=== PATIENT | female | born 1995 | race Caucasian/White ===

== ENCOUNTER 2020-04-20 19:45 | Emergency (ER) | payer OTHER, SELFPAY ==
[~2020-04-20] VITALS: Ht 170.2 cm; Wt 61.2 kg
[2020-04-20] MEDS ORDERED: ACETAMINOPHEN 500 MG TAB PO ONE (22:00)
[2020-04-20 22:06] VITALS: BP 123/79
== END 2020-04-20 22:07 | disposition home or self-care (01) ==
LOC: M ED 19:45
DX: S01.01XA Laceration without foreign body of scalp, initial encounter (principal); W22.09XA Striking against other stationary object, initial encounter; Y92.098 Other place in other non-institutional residence as the place of occurrence of the external cause; F10.10 Alcohol abuse, uncomplicated; F17.200 Nicotine dependence, unspecified, uncomplicated

== ENCOUNTER 2020-08-25 16:42 | Emergency (ER) | payer OTHER ==
[~2020-08-25] VITALS: Ht 167.6 cm; Wt 62.1 kg
[2020-08-25 16:42] VITALS: BP 143/87
--- OUTSIDE RECORDS SUMMARY | 2020-08-25 16:47 | CCD | Continuity of Care Document ---
Author Author Daniella MICHAELS MD Organization Unknown Address [address] [place] [address], [address] [address] Phone [phone] Problems Description No Information Available Social History Type Date Description Comments Sex Unknown ETOH Use Occasionally consumes alcohol Tobacco Use Start: Unknown Patient is a current smoker, smo kes every day Smoking Status Reviewed: 06/04/20 Patient is a current smoker, smokes every day Allergies, Adverse Reactions, Alerts Description No Known Drug Allergies Medications Active Medications SIG Qnty Indications Ordering Provide r Date Ibuprofen 800mg Tablets 1 by mouth every 8 hours as needed Unknown Immunizations Description No Information Available Vital Signs Date Vital Result Comment 06/04/2020 10:30am Body Temperature 97.7 F Height 67 inches 5'7" Weight 135.00 lb BMI (Body Mass Index) 21.1 kg/m2 Results Description No Information Available Procedures Description No Information Available Medical Devices Description No Information Available Encounters Description No Information Available Assessments Date Code Description Provider 06/04/2020 S62.356A Nondisplaced fractur e of shaft of fifth metacarpal bone, right hand, initial encounter for closed fracture Vivi Michaels MD Plan of Treatment Future Appointment(s):* 06/10/2020 2:15 pm - Lucy Ladd PA-C at [facility] 06/04/2020 - Vivi Michaels MD* S62.356A Nondisplaced fracture of shaft of fifth metacarpal bone, right hand, initial encounter for closed fracture* Follow up:* f/u with PA in 1 week with xrays Functional Status Description No Information Available Mental Status Description No Information Available Referrals Description No Information Available
--- OUTSIDE RECORDS SUMMARY | 2020-08-25 16:47 | CCD | Continuity of Care Document ---
Author Author Daniella MICHAELS MD Organization Unknown Address [address] [place] [address], [address] [place] [id number] Phone [phone] Problems Description No Information Available Social History [...] kg/m2 Results Description No Information Available Procedures Date Code Description Status 06/10/2020 67893 X-Ray Hand Three Views Completed 06/04/2020 52781 FX Metacarpal W/O Manipulation C ompleted Medical Devices Description No Information Available Encounters Type Date Location Provider Dx Diagnosis Office Visit 06/10/2020 2:15p Kimo Ladd PA-C S62.356 D Nondisp fx of shaft of 5th MC bone, r hand, 7thD Office Visit 06/04/2020 10:00a Kimo Michaels MD S6 2.326A Disp fx of shaft of fifth metacarpal bone, right hand, init Assessments Date Code Description Provider 06/10/2020 S62.356D Nondisplaced fractur e of shaft of fifth metacarpal bone, right hand, subsequent encounter for fracture with routine healing Lucy Ladd PA-C 06/04/2020 S62.326A Displaced fracture o f shaft of fifth metacarpal bone, right hand, initial encounter for closed fracture Vivi Michaels MD Plan of Treatment Future Appointment(s):* 07/03/2020 2:15 pm - Lucy Ladd PA-C at [place] 06/10/2020 - Lucy Ladd PA-C* S62.356D Nondisplaced fracture of shaft of fifth metacarpal bone, right hand, subsequent encounter for fracture with routine healing* Follow up:* in 2-3 weeks with [facility] for right wrist recheck with [facility]. Functional Status Description No Information Available Mental Status Description No Information Available Referrals Description No Information Available
--- OUTSIDE RECORDS SUMMARY | 2020-08-25 16:47 | CCD ---
Continuity of Care Document (CCD) Created on: 06/25/2020 Daniella De Souza External Reference #: [id number] : 1995 Sex: Female Author Author Daniella LADD PA-C Organization Unknown Address [address] [place] [address] Phone [phone] Problems Description No Information Available Social History [...] Available Procedures Date Code Description Status 06/10/2020 27630 X-Ray Hand Three Views Completed 06/04/2020 08786 FX Metacarpal W/O Manipulation C ompleted Medical Devices Description No Information Available Encounters Type Date Location Provider Dx Diagnosis Office Visit 06/10/2020 2:15p [facility] PA-[facility] S62.356 D Nondisp fx of shaft of 5th MC bone, r hand, 7thD Office Visit 06/04/2020 10:00a Kimo Ward MD S6 2.326A Disp fx of shaft of fifth metacarpal bone, right hand, init Assessments Date Code Description Provider 06/10/2020 S62.356D Nondisplaced fractur e of shaft of fifth metacarpal bone, right hand, subsequent encounter for fracture with routine healing Lucy Ladd PA-C 06/04/2020 S62.326A Displaced fracture o f shaft of fifth metacarpal bone, right hand, initial encounter for closed fracture Vivi Ward MD Plan of Treatment Future Appointment(s):* 07/03/2020 2:15 pm - Lucy Ladd PA-C at [facility] 06/10/2020 - Lucy Ladd PA-C* S62.356D Nondisplaced [...]
--- OUTSIDE RECORDS SUMMARY | 2020-08-25 16:47 | CCD ---
Author Author [facility] Organization [facility] Address Unknown Phone Unavailable Care Team Providers Care [employer] Worker Name Role Phone [facility]ly [facility], 1928–1983 [facility], PA-C Unavailable Unavailabl e Fish, [facility], PA-C Unavailable Unavailabl e Fish, [facility], PA-C Unavailable Unavailabl e Fish, [facility], PA-C Unavailable Unavailabl e Fish, [facility], PA-C Unavailable Unavailabl e Fish, [facility], PA-C Unavailable Unavailabl e Fish, [facility], PA-C Unavailable Unavailabl e Fish, [facility], PA-C Unavailable Unavailabl e Fish, [facility], PA-C Unavailable Unavailabl e Fish, [facility], PA-C Unavailable Unavailabl e Fish, [facility], PA-C Unavailable Unavailabl e Fish, [facility], PA-C Unavailable Unavailabl e Fish, [facility], PA-C Unavailable Unavailabl e Fish, [facility], PA-C Unavailable Unavailabl e Fish, [facility], PA-C Unavailable Unavailabl e Fish, [facility], PA-C Unavailable Unavailabl e Fish, [facility], PA-C Unavailable Unavailabl e Fish, [facility], PA-C Unavailable Unavailabl e Fish, [facility], PA-C Unavailable Unavailabl e Fish, [facility], PA-C Unavailable Unavailabl e Fish, [facility], PA-C Unavailable Unavailabl e Fish, [facility], PA-C Unavailable Unavailabl e Fish, [facility], PA-C Unavailable Unavailabl e Fish, [facility], PA-C Unavailable Unavailabl e Fish, [facility], PA-C Unavailable Unavailabl e Fish, [facility], PA-C Unavailable Unavailabl e Fish, [facility], PA-C Unavailable Unavailabl e Fish, [facility], PA-C Unavailable Unavailabl e Fish, [facility], PA-C Unavailable Unavailabl e Fish, [facility], PA-C Unavailable Unavailabl e Fish, [facility], PA-C Unavailable Unavailabl e Fish, [facility], PA-C Unavailable Unavailabl e Fish, [facility], PA-C Unavailable Unavailabl e MARAVEGIAS, Eric BROWN MD Unavailable Unavailable MARAVEGIAS, Eric BROWN MD Unavailable Unavailable MARAVEGIAS, Eric BROWN MD Unavailable Unavailable MARAVEGIAS, Eric BROWN MD Unavailable Unavailable MARAVEGIAS, Eric BROWN MD Unavailable Unavailable MARAVEGIAS, Eric BROWN MD Unavailable Unavailable MARAVEGIAS, Eric BROWN MD Unavailable Unavailable MARAVEGIAS, Eric BROWN MD Unavailable Unavailable MARAVEGIAS, Eric BROWN MD Unavailable Unavailable MARAVEGIAS, Eric BROWN MD Unavailable Unavailable MARAVEGIAS, Eric BROWN MD Unavailable Unavailable MARAVEGIAS, Eric BROWN MD Unavailable Unavailable MARAVEGIAS, Eric BROWN MD Unavailable Unavailable MARAVEGIAS, Eric BROWN MD Unavailable Unavailable TURRIN, KELLY Unavailable Unavailable TURRIN, KELLY Unavailable Unavailable TURRIN, KELLY Unavailable Unavailable TURRIN, KELLY Unavailable Unavailable Ruben Ward MD Unavailable Unavailable Ruben Ward MD Unavailable Unavailable Ruben Ward MD Unavailable Unavailable Ruben Ward MD Unavailable Unavailable Ruben Ward MD Unavailable Unavailable Ruben Ward MD Unavailable Unavailable Ruben Ward MD Unavailable Unavailable Vaneenenaam, Ruben Virgen MD Unavailable Unavailable Vaneenenaam, Ruben Virgen MD Unavailable Unavailable Vaneenenaam, Ruben Virgen MD Unavailable Unavailable Vaneenenaam, Ruben Virgen MD Unavailable Unavailable Vaneenenaam, Ruben Virgen MD Unavailable Unavailable Vaneenenaam, Ruben Virgen MD Unavailable Unavailable Vaneenenaam, Ruben Virgen MD Unavailable Unavailable Vaneenenaam, Ruben Virgen MD Unavailable Unavailable Vaneenenaam, Ruben Virgen MD Unavailable Unavailable Vaneenenaam, Ruben Virgen MD Unavailable Unavailable Vaneenenaam, Ruben Virgen MD Unavailable Unavailable Vaneenenaam, Ruben Virgen MD Unavailable Unavailable Vaneenenaam, Ruben Virgen MD Unavailable Unavailable Vaneenenaam, Ruben Virgen MD Unavailable Unavailable Vaneenenaam, Ruben Virgen MD Unavailable Unavailable Vaneenenaam, Ruben Virgen MD Unavailable Unavailable Vaneenenaam, Ruben Virgen MD Unavailable Unavailable Vaneenenaam, Ruben Virgen MD Unavailable Unavailable Vaneenenaam, Ruben Virgen MD Unavailable Unavailable Vaneenenaam, Ruben Virgen MD Unavailable Unavailable Vaneenenaam, Ruben Virgen MD Unavailable Unavailable Vaneenenaam, Ruben Virgen MD Unavailable Unavailable Vaneenenaam, Ruben Virgen MD Unavailable Unavailable Vaneenenaam, Ruben Virgen MD Unavailable Unavailable Vaneenenaam, Ruben Virgen MD Unavailable Unavailable Vaneenenaam, Ruben Virgen MD Unavailable Unavailable Vaneenenaam, Ruben Virgen MD Unavailable Unavailable Vaneenenaam, Ruben Virgen MD Unavailable Unavailable Vaneenenaam, Ruben Virgen MD Unavailable Unavailable Vaneenenaam, Ruben Virgen MD Unavailable Unavailable Vaneenenaam, Ruben Virgen MD Unavailable Unavailable Vaneenenaam, Ruben Virgen MD Unavailable Unavailable Vaneenenaam, Ruben Virgen MD Unavailable Unavailable Vaneenenaam, Ruben Virgen MD Unavailable Unavailable Vaneenenaam, Ruben Virgen MD Unavailable Unavailable Nasrin VALDES MD Unavailable Unavailable Nasrin VALDES MD Unavailable Unavailable Nasrin VALDES MD Unavailable Unavailable Nasrin VALDES MD Unavailable Unavailable Nasrin VALDES MD Unavailable Unavailable Nasrin VALDES MD Unavailable Unavailable Nasrin VALDES MD Unavailable Unavailable Nasrin VALDES MD Unavailable Unavailable Nasrin VALDES MD Unavailable Unavailable NOT, SPECIFIED Unavailable Unavailable Re-disclosure Warning The records that you are about to access may contain information from federally-assisted alcohol or drug abuse programs. If such information is present, then the following federally mandated warning applies: This information has been disclosed to you from records protected by federal confidentiality rules (42 CFR part 2). The federal rules prohibit you from making any further disclosure of this information unless further disclosure is expressly permitted by the written consent of the person to whom it pertains or as otherwise permitted by 42 CFR part 2. A general authorization for the release of medical or other information is NOT sufficient for this purpose. The Federal rules restrict any use of the information to criminally investigate or prosecute any alcohol or drug abuse patient.The records that you are about to access may contain highly sensitive health information, the redisclosure of which is protected by Article 27-F of the [facility] Public Health law. If you continue you may have access to information: Regarding HIV / AIDS; Provided by facilities licensed or operated by the [facility] Office of Mental Health; or Provided by the [facility] Office for People With Developmental Disabilities. If such information is present, then the following [facility] mandated warning applies: This information has been disclosed to you from confidential records which are protected by state law. State law prohibits you from making any further disclosure of this information without the specific written consent of the person to whom it pertains, or as otherwise permitted by law. Any unauthorized further disclosure in violation of state law may result in a fine or half-way sentence or both. A general authorization for the release of medical or other information is NOT sufficient authorization for further disc losure. Allergies and Adverse Reactions Type Description Substance Reaction Status Data Source(s ) Drug allergy Drug allergy No Known Allergies [facility] Encounters Encounter Providers Location Date Indications Data Source(s ) Emergency Attender: KELLY CERVANTESConsultant: SPECIFIED N OT 08/19/2020 12:06:00 PM EST - 08/19/2020 01:05:00 PM [facility] Patient discharged. Office Visit Attender: Lucy BELTRÁN PA-C Physical Therapy 06/10/2020 01:15:00 PM EST [facility] ([facility]) OFFICE OUTPATIENT NEW 30 MINUTES Attender: Ruben Rodriguez am, MD Physical Therapy 06/04/2020 09:00:00 AM EST [facility] ([facility]) Emergency Attender: GONZALO VALDES MDConsultant: SPECIFIED NOT 06/02/2020 06:14:00 PM EST - 06/02/2020 07:09:00 PM [facility] Patient discharged. Emergency Attender: STEPHANIE LANDRY MD ED-ED 1 06:41:00 PM EDT - 04/30/2020 07:10:00 PM EDT NEEDS YOANDY TAKEN OUT [facility] NEEDS YOANDY TAKEN OUT Patient discharged. Insurance Providers Payer name Policy type / Coverage type Policy ID Covered libertarian ID Covered libertarian's relationship to powell Policy Powell Plan Information [facility] COMMUNITY PLAN [facility] [id number] SP [id number] [facility] COMMUNITY PLAN XIX . 18 . [facility] COMMUNITY PLAN XIX [id number] 18 [id number] [facility] [id number] S [id number] SELF PAY ONLY STATE FARM INS NO FAULT 00 MO2 [address] [facility] [address] [id number] S [id number] ANSI-Medicaid [id number] O UNAVAILABLE UNAVAILA BLE [facility]) O [id number] S [id number] [facility] COMMUNITY PLAN [facility] [id number] SP [id number] Lifetime Benefit Solution Commercial Family Depend ent MEDICAID [id number] SP [id number] [facility] [id number] SP [id number] BLUE [employer]OSS [place] PLAN [id number] SP [id number] [facility] [id number] SP [id number] [facility] MEDICAL CLAIMS [id number] MEDICAID MANAGED CARE -CLINIC [id number] Problems, Conditions, and Diagnoses Code Display Name Description Problem Type Effective Dates Data Source(s) Y929 [address] or not applicable Unspecified place or not applicable Diagnosis 08/19/2020 12:06:00 PM [facility] [id number] Fall on same level from slip ping, tripping and stumbling without subsequent striking against object, initial encounter Fall on same level from slipping, tripping and stumbling without subsequent striking against object, initial encounter Diagnosis 08/19/2020 12:06:00 PM [facility] [id number] Personal history of other (healed) physi bita injury and trauma Personal history of other (healed) physical injury and trauma Diagnosis 0 08/19/2020 12:06:00 PM [facility] [id number] Nicotine dependence, cigarettes, uncompl icated Nicotine dependence, cigarettes, uncomplicated Diagnosis 08/19/2020 12:06:00 PM [facility] [id number] Sprain of radiocarpal joint of right wri st, initial encounter Sprain of radiocarpal joint of right wrist, initial encounter Diagnosis 12:06:00 PM [facility] [id number] Pain in right wrist Pain in right wrist Diagnosis 0 08/19/2020 12:06:00 PM [facility] [id number] Restaurant or cafe as the place of occur rence of the external cause Restaurant or cafe as the place of occurrence of the external cause Diagnosis 06/02/2020 06:14:00 PM [facility] [id number] Striking against or struck by other obje cts, initial encounter Striking against or struck by other objects, initial encounter Diagnosis 06/02/2020 06:14:00 PM [facility] [id number] Displaced fracture of shaft of fifth metacarpal bone, right hand, initial encounter for closed fracture Displaced fracture of shaft of fifth metacarpal bone, right hand, initial encounter for closed fracture Diagnosis 06/02/2020 06:14:00 PM [facility] [id number] Unspecified injury of right wrist, hand and finger(s), initial encounter Unspecified injury of right wrist, hand and finger(s), initial encounter Diagnosis 06/02/2020 06:14:00 PM [facility] Surgeries/Procedures Procedure Description Date Indications Data Source(s) RADEX HAND MINIMUM 3 VIEWS 06/10/2020 12:00:00 AM EST [facility] ([facility]) CLTX METACARPAL FX W/O MANIPULATION EACH BONE 06/04/20 12:00:00 AM EST [facility] ([facility]) Results ID Date Data Source [id number] 08/20/2020 09:31:00 AM [facility] [address] [place] [address] PHONE: [phone] FAX: [phone] Name .................. : RAJWINDER MANJARREZ Acct Number.................. : [id number] ROOM. ................. : TR-03 MR Number ................... : [id number] Stay type ............. : E/R Discharge Date......... ... : 08/19/20 Admit Date ... ...... : 08/19/20 Admit Phys .................... : HELEN LOPEZ Date of ....... : 1995 Family Phys ................... : Phone .................. : [phone] Age ................................ : 24 Film# .................. .:[id number] Sex ................................. : F Unsigned transcriptions are preliminary reports and do not represent a medical or legal [place] [id number] COMPLETE:08/19/20 12:21 2929 Reason(s): Trauma/Injury RIGHT WRIST SERIES: COMPARISON: 06/02/20 FINDINGS: There is a healing fracture at the proximal shaft of the fifth metacarpal. This was seen in the acute stage on the prior study. No new fracture or dislocation is identified. An accessory ossicle is stable adjacent to the ulnar styloid. The soft tissues appear unremarkable. There is anatomical alignment. IMPRESSION: He aling fracture at proximal shaft fifth metacarpal. No new acute fracture. Electronically Reviewed and Signed By Miles Abraham MD , 08/20/20 09:31, TDS Transcribe Initials: SEPIDEH , Transcribe Date: 08/19/20 22:25, Dictation Date: Copy for: [employer] via fax Copy for: EMERGENCY DEPT via modem Copy for: 710 MED REC DISCHARGED Page 1 of 1 Name Value Range Interpretation Code Description Data Ambreen rce(s) Supporting Document(s) ID Date Data Source [id number] 08/19/2020 12:06:00 PM EST [facility] 1 OrderSheet [facility] Emergency Department [address] [place] [address] Phone #: [phone]- [phone] 08/19/2020 12:03 Patient: LOKI PURDY Sex: F : 1995 Age: 24yWEIGHT:58.0 kg (S) HEIGHT:66 inches (S) BMI:20.6ALLERGIES: NoneCHIEF COMPLAINT: Rt, wristDIAGNOSIS: Sprain of jointLAB ORDERSOrder Description Priority Entered Acknowledged InitialedDIAGNOSTIC STUDY ORDERSOrder Description Priority Entered Acknowledged InitialedWrist Complete STAT 12:21 08/19/2020 Ack'd: 12:23 12:27 Angella Petty cesspool cleanerYan(Oxygen?(No)) PA; RAjNAj Tech1 Reason for Study: Trauma/InjuryMEDICATION/IV/DRI P/FLUID ORDERSOrder Description Priority Entered Acknowledged InitialedTylenol PO 650 mg 12:21 08/19/2020 Ack'd: 12:23 Angella Childers R.N. Cancelled: Patient Refusal 12:49 ABAD Childers R.N.GENERAL ORDERSOrder Description Priority Entered Acknowledged Initialed[Electronically signed by Angella Childers R.N. (13:07 08/19/2020)][Electronically signed by Luis Antonio Montesinos (21:42 08/19/2020)][Electronically locked by Angella Childers R.N. (13:08/19/2020)] Name Value Range Interpretation Code Description Data [facility] Supporting Document(s) ID Date Data Source [id number] 08/19/2020 12:06:00 PM [facility] 1 Medication Reconciliation Report [facility] Emergency Department [address] [place] [address] Phone #: ext- [phone] 08/19/2020 12:03 Patient: LOKI PURDY Sex: F : 1995 Age: 24yWeight: 58.0 kgHeight/Length: 66 in.BMI: 20.6ALLERGIES: NoneThe patient's Home Medications are listed below:NONE.The source(s) of the original Home Medication information:Not obtained.The following Medications were given to the patient in the Emergency Department:None.The following Medications were prescribed to the patient:None. Name Value Range Interpretation Code Description Data Ambreen rce(s) Supporting Document(s) ID Date Data Source [id number] 08/19/2020 12:06:00 PM [facility] 1 Medication Administration Record [facility] Emergency Department [address] [place] [address] Phone #: ext- [phone] 08/19/2020 12:03 Patient: LOKI PURDY Sex: F : 1995 Age: 24yWeight: 58.0 kgHeight/Length: 66 inBMI: 20.6ALLERGIES: NoneDate/Time Medication Administered Medication Ordered Name Value Range Interpretation Code Description Data Ambreen rce(s) Supporting Document(s) ID Date Data Source [id number] 08/19/2020 12:06:00 PM EST [facility] 1 General Instructions [facility] Emergency Department [address] [place] [address] Phone #: ext- [phone] 08/19/2020 12:03 Patient: LOKI PURDY Sex: F : 1995 Age: 24ySprain of the right radiocarpal joint.INSTRUCTIONSWear cock-up splint for two weeks until better.Warnings: GENERAL WARNINGS: Return or contact your physician immediately if your conditionworsens or changes unexpectedly, if not improving as expected, or if other problems arise. Specificallyreturn if pain worsens.Your Current Medications: .No home medication.Follow-up:Follow up with your doctor as scheduled. Reason for referral: evaluation and treatment. Summary of careprovided to patient.Understanding of the discharge instructions verbalized by patient. ADDITIONAL INFORMATIONWrist SprainA sprain is an injury to the ligaments or capsule that holds a joint together. There are no brokenbones. Most sprains take about 3 to 6 weeks to heal. If it a severe sprain where the ligament iscompletely torn, it can take months to recover.Most wrist sprains are treated with a splint, wrist brace, or elastic wrap for support. Severe sprainsmay require surgery.Home care Keep your arm elevated to reduce pain and swelling. This is very important during the first 48 hours. Apply an ice pack over the injured area for 15 to 20 minutes every 3 to 6 hours. You should do this for the first 24 to 48 hours. You can make an ice pack by filling a plastic bag that seals 2 General Instructions [facility] Emergency Department [address] [place], [place] [id number] Phone #: ext- [phone] 08/19/2020 12:03 Patient: LOKI PURDY Sex: F : 1995 Age: 24y at the top with ice cubes and then wrapping it with a thin towel. Continue to use ice packs for relief of pain and swelling as needed. As the ice melts, be careful to avoid getting your wrap, splint, or cast wet. After 48 hours, apply heat (warm shower or warm bath) for 15 to 20 minutes several times a day, or alternate ice and heat. You may use [id number] pain medicine to control pain, unless another pain medicine was prescribed. If you have chronic liver or kidney disease or ever had a stomach ulcer or gastrointestinal bleeding, talk with your doctor before using these medicines. If you were given a splint or brace, wear it for the time advised by your doctor.Follow-up careFollow up with your healthcare provider, or as advised. Any X-rays you had today don't show anybroken bones, breaks, or fractures. Sometimes fractures don't show up on the first X-ray. Bruises andsprains can sometimes hurt as much as a fracture. These injuries can take time to heal completely. Ifyour symptoms don't improve or they get worse, talk with your doctor. You may need a repeat X-ray.If X-rays were taken, you will be told of any new findings that may affect your care. When to seek medical advice Call your healthcare provider right away if any of these occur: Pain or swelling increases Fingers or hand becomes cold, blue, numb, or tingly [employer]. [address] [place] [id number]. All rights reserved. This information is not intended as asubstitute for professional medical care. Always follow your healthcare professional's instructions.Wrist Splint: VelcroA splint is designed to prevent movement of the bones, muscles and tendons. Velcro wrist splints areused because of their comfort and convenience for wrist and hand injuries. In certain conditions, thesplint can be removed when bathing or changing clothes. The cond ition you are being treated for willdetermine how long you should wear the splint and if it is safe to remove your splint before your nextvisit. If you are unsure, ask your nurse or doctor. When to seek medical advice Call your healthcare provider right away if any of these occur: Increased pain or swelling under the splint or in the hand or fingers Fingers or hand becomes cold, blue, numb or tingly 3 General Instructions [facility] Emergency Department [address] [place] [address] Phone #: ext- [phone] 08/19/2020 12:03 Patient: LOKI PURDY Sex: F : 1995 Age: 24y [id number] [employer]. [address] [place] [address]. All rights reserved. This information is not intended as asubstitute for professional medical care. Always follow your healthcare professional's instructions. You have been given the following additional information: Wrist Sprain Wrist Splint, Velcro(Electronically signed by JUAN LUIS Yee 08/19/2020 21:42) Name Value Range Interpretation Code Description Data Ambreen rce(s) Supporting Document(s) ID Date Data Source [id number] 08/19/2020 12:06:00 PM EST [facility] 1 Clinical Report - Nurses [facility] Emergency Department [address] [place] [address] Phone #: ext- [phone] 08/19/2020 12:03 Patient: LOKI PURDY Sex: F : 1995 Age: 24yTRIAGEArrived by private vehicle. Historian: patient. Accompanied by friend. ( broke her right hand 1 or 2months ago, had a cast then 2 days ago slipped and landed on right hand now swollen and bruised).Acuity: LEVEL 4.Chief Complaint: INJURY TO RIGHT HAND.Occurred at work. Occurred 12:05 08/17/2020. Fell:Pre-hospital notification of patient arrival was not received.Treatment SHANK INSPECTOR:None. --12:10 08/19/20 Nakia Noble R.N.12:04 08/19/20. BP: 112/68. MAP: 82. HR: 93. RR: 18. O2 saturation: 96%. Temp: 98.4 F. Pain level now:10/02. --12:10 08/19/20 Nakia Noble R.N.( pt is anxious to be here). --12:11 08/19/20 Nakia Noble R.N.Weight: 58 kg stated. Height/Length: 66 inches Per Patient. BMI: 20.6. --12:04 08/19/20 Nakia Noble R.N.MedicationsNone. --12:06 08/19/20 Nakia Noble R.N.AllergiesNone. --12:06 08/19/20 Nakia Noble R.N.HistoryPAST MEDICAL HX: Tetanus status: unknown. Immunizations: status is unknown. Last normalmenstrual period- 1 weeks.SOCIAL HX: Light tobacco smoker- less than 1/2 a pack per day. Heavy drug use: marijuana. Thepatient was offered HIV testing but declined and hepatitis C testing but declined. The patient has nottraveled outside the [place]Infectious disease exposure: No infectious disease exposure. Patient is not a known carrier of tuberculosis,hepatitis, HIV, MRSA or VRE. Patient is not a known carrier of CRE.SELF HARM ASSESSMENT: Self harm assessment was performed. The patient answered "no" to thequestion(s) "Have you recently felt down, depressed, or hopeless?", "Do you have thoughts of harming orkilling yourself?", "Do you have a plan for harming or killing yourself?", "Have you recently had thoughtsabout harming or killing others?", "Do you have any dangerous items in your possession?", "Have you 2 Clinical Report - Nurses [facility] Emergency Department [address] [place] [address] Phone #: ext- [phone] 08/19/2020 12:03 Patient: LOKI PURDY Sex: F : 1995 Age: 24y noticed less interest or pleasure in doing things?", "Are you here because you tried to hurt yourself?" and "Have you ever tried to hurt yourself before today?". ABUSE ASSESSMENT: Abuse assessment. Abuse denied. No suspicion of abuse. No report of abuse. NUTRITIONAL RISK ASSESSMENT: The nutritional risk assessment revealed no deficiencies. FUNCTIONAL ASSESSMENT: Functional assessment: no impairments noted. LEARNING NEEDS ASSESSMENT: The learning needs assessment revealed no barriers. FALL RISK ASSESSMENT: Fall risk assessment completed. No risk factors identified. SKIN INTEGRITY ASSESSMENT: Skin integrity risk assessment completed. No skin integrity risk identified. --12:10 08/19/20 Nakia Noble R.N. Interventions Identification band on patient. To treatment room. --12:10 08/19/20 Nakia Noble R.N.PHYSICAL ASSESSMENTAmbulatory to room.GENERAL / NEURO / PSYCH: Oriented X 4. Alert. Appears in no acute distress. She has numbnessof the right hand.EXTREMITIES: Limited ROM present. Capillary refill is less than 2 seconds in the extremities. Extremitypulses are within normal limits. Right wrist. Right hand: ecchymosis. ( n/v feels different on posteriorhand near pinky finger).SKIN: Skin intact. Skin is warm and dry. --12:19 08/19/20 Angella Childers R.N.NURSING PROGRESS NOTESPatient gowned. Reassurance given. Two patient identifiers checked. Call light placed in reach. Siderails up x 2. Bed placed in lowest position. Brakes of bed on. Patient ready for evaluation. --12: Nakia Noble R.N. Patient walked to radiology with offshore wind turbine technician. --12:27 08/19/20 [place] cesspool cleaner, Yan, Tech1.DISPOSITION / DISCHARGE late entry - 13:08/19/20. Departure time: late entry - 13:08/19/2020. Condition at departure: improved. No learning barriers present. Discharge instructions provided and reviewed with the patient. Reviewed referral to a primary care physician for followup. Patient verbalized understanding. Written instructions provided in [place]. The patient was discharged by the physician assistant professor surgical technology. She was discharged home and unaccompanied at time of discharge. She left ambulatory and via private vehicle. Patient driving. --13:07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 ID Date Data Source UNK Name Value Range Interpretation Code Description Data Source(s) Body mass index (BMI) [Ratio] 21.1 kg/m2 21.1 k g/m2 [facility] ([facility] ) Body weight 135.00 [lb_av] 135.00 [lb_av] MEDEN T ([facility] ) Body height 67 [in_i] 67 [in_i] [facility] ([facility] ) 5'7" Body temperature 97.7 [degF] 97.7 [degF] [facility] ([facility] ) ID Date Data Source [id number] 04/30/2020 07:20:00 PM EDT [facility] spital Name Value Range Interpretation Code Description Data Source(s) Weight Measurement Method 8 8 [facility] Weight 2160 2160 [facility] pital Temperature Source 7 7 [facility] Temperature 97.4 97.4 [facility] Respiratory Effort 1 1 [facility] Respiratory Rate 18 18 [facility] Pulse Assessment Method 4 4 G [facility] Pulse Rate 87 87 [facility] Height 67 67 [facility] 112/87 112/87 [facility] Weight Measurement Method 8 8 [facility] Weight 2160 2160 [facility] pital Temperature Source 7 7 [facility] Temperature 97.4 97.4 [facility] Respiratory Effort 1 1 [facility] Respiratory Rate 18 18 [facility] Pulse Assessment Method 4 4 G [facility] Pulse Rate 87 87 [facility] Height 67 67 [facility] Blood Pressure 112/87 112/87 [facility]
--- OUTSIDE RECORDS SUMMARY | 2020-08-25 16:47 | CCD | Continuity of Care Document ---
Author Author Daniella LADD PA-C Organization Unknown Address [address] [place] [id number] Phone [phone] Problems Description No Information Available Social History [...] Available Procedures Date Code Description Status 06/10/2020 84418 X-Ray Hand Three Views Completed 06/04/2020 64909 FX Metacarpal W/O Manipulation C ompleted Medical Devices Description No Information Available Encounters Type Date Location Provider Dx Diagnosis Office Visit 06/04/2020 10[place] S6 2.356A Nondisp fx of shaft of fifth MC bone, right hand, init Assessments Date Code Description Provider 06/10/2020 S62.356D Nondisplaced fractur e of shaft of fifth metacarpal bone, right hand, subsequent encounter for fracture with routine healing Lucy Ladd PA-C 06/04/2020 S62.356A Nondisplaced fractur e of shaft of fifth metacarpal bone, right hand, initial encounter for closed fracture Vivi Ward MD Plan of Treatment 06/10/2020 - Lucy Ladd PA-C* S62.356D Nondisplaced fracture of shaft of fifth metacarpal bone, right hand, subsequent encounter for fracture with routine healing* Follow up:* in 2-3 weeks with [facility] for rihgt wrist recheck with [facility]. Functional Status Description No Information Available Mental Status Description No Information Available Referrals Description No Information Available
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
== END 2020-08-25 17:49 | disposition home or self-care (01) ==
LOC: M ED 16:42
DX: F32.9 Major depressive disorder, single episode, unspecified (principal); S50.912A Unspecified superficial injury of left forearm, initial encounter; Z91.5 Personal history of self-harm; F17.200 Nicotine dependence, unspecified, uncomplicated; F12.10 Cannabis abuse, uncomplicated; X58.XXXA Exposure to other specified factors, initial encounter; Y92.9 Unspecified place or not applicable; Y93.9 Activity, unspecified; Y99.9 Unspecified external cause status

== ENCOUNTER 2020-10-12 19:24 | Emergency (ER) | payer OTHER ==
[~2020-10-12] VITALS: Ht 167.6 cm; Wt 61.0 kg
[2020-10-12 19:24] VITALS: BP 138/63
[2020-10-12] MEDS ORDERED: LIDOCAINE 2% MDV 20ML VIAL SC ONE (20:05)
[2020-10-12] MEDS ORDERED: DERMABOND TOPICAL SKIN ADHESIVE TOP ONE (20:15)
== END 2020-10-12 20:53 | disposition home or self-care (01) ==
LOC: M ED 19:24
DX: S61.215A Laceration without foreign body of left ring finger without damage to nail, initial encounter (principal); W26.8XXA Contact with other sharp object(s), not elsewhere classified, initial encounter; Y99.0 Civilian activity done for income or pay; Y92.9 Unspecified place or not applicable; Y93.9 Activity, unspecified; F17.200 Nicotine dependence, unspecified, uncomplicated

== ENCOUNTER 2021-03-26 00:58 | Inpatient (IN) | payer MEDICAID, OTHER ==
[~2021-03-26] VITALS: Ht 170.2 cm; Wt 56.7 kg
[2021-03-26 01:59] LABS: HEMATOCRIT 39.8 % (36.0-47.0); MEAN CORPUSCULAR HEMOGLOBIN 32.9 pg (27.0-33.0); MEAN CORPUSCULAR HGB CONC 35.2 g/dl (32.0-36.5); MEAN CORPUSCULAR VOLUME 93.4 fl (80.0-96.0); PLATELET COUNT, AUTOMATED 290 10^3/uL (150-450); RED BLOOD COUNT 4.26 10^6/uL (4.00-5.40); WHITE BLOOD COUNT 7.1 10^3/uL (4.0-10.0)
[2021-03-26 02:34] LABS: HCG, SERUM QUALITATIVE NEGATIVE (NEGATIVE)
[2021-03-26 02:58] LABS: ACETAMINOPHEN LEVEL < 2.0 UG/ML (10.0-30.0); ALBUMIN 3.8 GM/DL (3.2-5.2); ALT/SGPT 21 U/L (12-78); AMPHETAMINES LEVEL URINE POSITIVE (NEGATIVE); BARBITURATES URINE NEGATIVE (NEGATIVE); BENZODIAZEPINES URINE NEGATIVE (NEGATIVE); BILIRUBIN,DIRECT 0.2 MG/DL (0.0-0.2); BILIRUBIN,TOTAL 0.7 MG/DL (0.2-1.0); BLOOD UREA NITROGEN 7 MG/DL (7-18); CALCIUM LEVEL 9.1 MG/DL (8.5-10.1); CANNABINOIDS URINE POSITIVE (NEGATIVE); CARBON DIOXIDE LEVEL 24 MEQ/L (21-32); CHLORIDE LEVEL 111 MEQ/L (98-107); COCAINE METABOLITE URINE POSITIVE (NEGATIVE); CREATININE FOR GFR 0.78 MG/DL (0.55-1.30); ETHYL ALCOHOL (ETHANOL) < 0.003 % (0.000-0.010); GLOMERULAR FILTRATION RATE > 60.0 (>60); GLUCOSE, FASTING 87 MG/DL (70-100); METHADONE URINE NEGATIVE (NEGATIVE); OPIATES URINE NEGATIVE (NEGATIVE); PHENCYCLIDINE URINE NEGATIVE (NEGATIVE); POTASSIUM SERUM 3.6 MEQ/L (3.5-5.1); SALICYLATE LEVEL < 1.7 MG/DL (5.0-30.0); SODIUM LEVEL 142 MEQ/L (136-145); TOTAL PROTEIN 7.1 GM/DL (6.4-8.2)
--- NOTE | 2021-03-26 08:23 | MHCRPDOC ---
[facility] Consultation Consultation DATE OF CONSULTATION: 03/26/21 CONSULTATION REQUESTED BY: Raymond ED REASON FOR CONSULTATION: Per mental health evaluation: "Pt reportedly lost her S.O. several days ago to suicide(hanging). Earlier carly a friend went to check on pt. and found her door barricaded, had to kick the door in to enter the residence. Pt reportedly had a wire hanging from ceiling and according to friend pt had it wrapped around her neck. Pt disputed this stating it was not wrapped around her neck and stated she just wanted to experience what her S.O. had done so she could better understand his suicide." RELEVANT HISTORY: Patient is a 25-year-old woman who reports she has a history of bipolar (diagnosed on inpatient admission when she was 14 years old due to cutting) who presents with police to the ED after per her report patient had a wire hanging from the ceiling with it wrapped around her neck. Reports she used cocaine 4 days ago which may have been mixed with other things, and she has been using with her partner who . Toxicology report was positive for cocaine, amphetamines, cannabis, reports she smokes cannabis daily. Patient reports she did not have it around her neck and had her 's clothes hanging on it. States " I wanted to understand what it is like", " I feel guilty because it was partly me". When asked to elaborate states that there were some infidelities prior to his suicide March 24. States that her had schizophrenia and had been dealing with hearing voices. Also reports another friend recently attempting suicide. On interview denies any psychiatric symptoms, denies any recent cutting, denies suicidal ideation, intent or plan. States she feels around the same time she would came in around a year ago due to suicidal ideation. Reports she has plans to take a week off from work and pain to her apartment, states she bought some paint. Also reports having 2 small animals she cares for, but denies other supports, also denies having any outpatient provider or medications. Denies having any weapons or guns at home. Reports that her friend from work who she does not know too well "Pb" was the one who broke in the door and was concerned for her, but states she feels frustrated because no one came to her until approximately 48 hours after the passing of her partner. When asked for collateral, she was initially resistant not wanting us to reach out to anybody for it due to concerns that they may paint a picture of her being unsafe. She was made aware that we need to obtain collateral to corroborate that she was not actually having a suicide attempt. PAST PSYCHIATRIC HISTORY: Denies taking any medications, reports 1 inpatient admission at age 14 after suicide attempt by superficial cutting, reports history of bipolar, but denies any symptoms of bipolar including periods of no sleep for 4 days or more, elevated moods, pressured speech. PAST MEDICAL HISTORY: Denies FAMILY HISTORY: Reports having some bipolar in her family PERSONAL AND SOCIAL HISTORY: The patient was born and raised in [place], [place]. Reports being raised by her mother, father was out of the picture. Resides in: [place] in the apartment above the [employer] where she works. Marital Status: S Single Children: None reported Employment: [employer], works in the kitchen. SUBSTANCE ABUSE HISTORY: Cannabis, cocaine, also "dabbing of cannabis" LEGAL HISTORY: . MENTAL STATUS EXAMINATION: Patient is a 25-year old female, who is withdrawn, guarded, poor eye contact, appears stated age with blonde hair, in hospital clothing, sitting in a chair, fair hygiene, has burn cruz on her forearms from a pizza oven reportedly. Speech is mildly slowed, normal volume, spontaneous. Language skills are intact. Thought processes including: Linear, logical. Thought content: Denies suicidal ideation, intent, plan. Abstract reasoning, and computation: Intact Description of associations: Normal. Description of abnormal or psychotic thoughts: Denies. Judgment: Poor. Insight: Fair. Orientation to x4. Recent and remote memory: Intact. Attention span and concentration: Good. Language: Greek. Fund of knowledge: Average. Mood: "okay". Affect: Dysthymic, labile, tearful, appropriate, mood incongruent DIAGNOSIS: 1. Unspecified depressive disorder, uncomplicated bereavement, rule out borderline personality disorder. Cannabis use disorder, cocaine use disorder, PLAN: 1. Patient likely minimizing psychiatric symptoms, also resistance to us reach out to collateral. Collateral needs to be obtained in order to verify she did not have a suicide attempt by hanging, if she did not have a suicide attempt confirmed by "Pb" who came to her apartment, she can be discharged with an outpatient appointment within 7 days in order to process feelings of grief and guilt, be evaluated for necessity for medication, and safety plan in place. If it is confirmed she did have a suicide attempt she meets criteria for inpatient admission involuntarily, this was communicated to the PSA. If collateral cannot be obtained, per admission work-up she meets criteria for inpatient treatment due to suicide attempt by hanging. Total time 35 minutes Vital Signs Vital Signs Date Time Temp Pulse Resp B/P (MAP) Pulse Ox O2 Delivery O2 Flow Rate FiO2 03/26/21 01:32 97.3 63 16 129/92 (104) 100 Room Air Laboratory Data 24H Labs Laboratory Tests 2 03/26/21 01:49: Nucleated Red Blood Cells % (auto) 0.0, Anion Gap 7L, Glomerular Filtration Rate > 60.0, Calcium Level 9.1, Total Bilirubin 0.7, Direct Bilirubin 0.2, Aspartate Amino Transf (AST/SGOT) 16, Alanine Aminotransferase (ALT/SGPT) 21, Alkaline Phosphatase 61, Total Protein 7.1, Albumin 3.8, Albumin/Globulin Ratio 1.2, Thyroid Stimulating Hormone (TSH) 1.110, Human Chorionic Gonadotropin, Qual NEGATIVE, Salicylates Level < 1.7L, Urine Opiates Screen NEGATIVE, Urine Methadone Screen NEGATIVE, Acetaminophen Level < 2.0L, Urine Barbiturates Screen NEGATIVE, Urine Phencyclidine Screen NEGATIVE, Urine Amphetamines Screen POSITIVEH, Urine Benzodiazepines Screen NEGATIVE, Urine Cocaine Metabolite Screen POSITIVEH, Urine Cannabinoids Screen POSITIVEH, Ethyl Alcohol Level < 0.003 Home Medications No Active Prescriptions or Reported Meds Allergies Coded Allergies: No Known Allergies (Unverified , 04/20/20) BRIANA AYALA MD Mar 26, 2021 08:23
[2021-03-26] MEDS: NICOTINE 21MG/24HR 1 EA TRANSDERMAL TD SCH (09:00)
[2021-03-26] MEDS ORDERED: MOM 30ML SUSPENSION UDC PO PRN (13:40)
[2021-03-26] MEDS ORDERED: traZODone 50 MG TAB PO PRN (13:40)
[2021-03-26] MEDS ORDERED: ACETAMINOPHEN TAB 650MG DOSE (2X325MG) PO PRN (13:40)
[2021-03-26] MEDS ORDERED: hydrOXYzine 50 MG TAB PO PRN (13:40)
[2021-03-26] MEDS ORDERED: MAALOX 30 ML SUSP *UDC PO PRN (13:40)
[2021-03-26] MEDS ORDERED: OLANZapine 5 MG TAB PO PRN (13:40)
[2021-03-26 14:17] LABS: RSV AMPLIFICATION NEGATIVE (NEGATIVE)
[2021-03-26 18:10] VITALS: BP 132/82
[2021-03-27 06:39] VITALS: BP 107/67
[2021-03-27] MEDS: NICOTINE 21MG/24HR 1 EA TRANSDERMAL TD SCH (09:00)
--- NOTE | 2021-03-27 15:20 | MHIPN ---
[facility] PROGRESS NOTE DATE: 03/27/2021 HISTORY: She was brought by the police for reported suicide attempt A friend of hers went to check on her and found her door barricaded. Had to kick the door to enter the residence. Patient had a card hanging from the ceiling. According to the friend, the patient had tried to wrap it around her neck. Patient disputed this, stating that she was not wrapping it. The reason for her suicide attempt was of her significant other, who committed suicide 2 days ago. Patient has significant guilt feeling. She was severely depressed, crying, unable to stop. Patient has history of bipolar disorder, but from age 14 she had been not hospitalized. 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 MENTAL STATUS EXAMINATION: Casually dressed. Easily irritable. Somewhat depressed. Preoccupation with guilt. Unable to recall the incident. Reports it is very painful for her. Currently she is on no medications. MENTAL STATUS EXAMINATION: Casually dressed. Partially cooperative. Made good eye contact. Speech circumstantial, mostly referring to her significant other, who has . Asking for discharge. Mood is depressed. Affect is constricted. Speech hyperverbal. Denied any auditory or visual hallucinations. Insight and judgment are poor. Impulse control is questionable. DIAGNOSES: 1. By history, bipolar disorder, depressed. 2. Bereavement, rule out complicated grief reaction. 3. Rule out major depressive disorder. ASSESSMENT: Currently patient is severely depressed. Patient has history of suicide attempts in the past. Patient has some cruz of self-mutilation in the past. Considering her recent loss, I would like to place her on Seroquel 25 mg at night. Titrate the dose; however, this seems to be Dr. Umanzor's patient. I discussed with him today I will do a followup. Tomorrow probably the patient will go to him. Will continue individual, group, and milieu therapy. She will be followed up with social secretary. ESTIMATED LENGTH OF STAY: 5-7 days. TIME SPENT: 25 minutes. ARACELIS
[2021-03-27 18:05] VITALS: BP 112/51
--- NOTE | 2021-03-27 18:32 | HPEPDOC ---
[facility] Medical History & Physical Date of Admission Mar 26, 2021 Date of Service: Mar 27, 2021 History and Physical CHIEF COMPLAINT: Suicidal ideation HISTORY OF PRESENT ILLNESS: Patient refused to discuss history of present illness but as per medical records it appears she was brought in for suicidal ideation. Possible stressor of losing her significant other recently due to suicide. Her friend had went to check on her and she was found with her door barricaded. Her friend had to kick the door and to enter and was found with a wire hanging from the ceiling wrapped around her neck. Patient refused that this was an attempt at suicide. PAST MEDICAL HISTORY: None on record SOCIAL HISTORY: As per medical records - The patient was born and raised in [place], [place] Reports being raised by her mother, father was out of the picture. Resides in: [place] in the apartment above the [employer] where she works. Marital Status: S Children: None reported Employment: [employer], works in the kitchen. FAMILY HISTORY: She states there is a history of bipolar disorder in her family. ALLERGIES: Please see below. REVIEW OF SYSTEMS: Unable to assess HOME MEDICATIONS: Please see below. PHYSICAL EXAMINATION: Patient refused physical examination. LABORATORY DATA: See below. A/P: 25-year-old female admitted to inpatient mental health unit for suspected suicidal ideation. Patient notes recent stressor of losing her significant other several days ago to suicide. Apparently reported that she was found barricaded in her room with a wire around her neck. #SI - as per primary team - psychiatry Thank you for this consultation. Please reconsult as needed. Vital Signs Vital Signs Date Time Temp Pulse Resp B/P (MAP) Pulse Ox O2 Delivery O2 Flow Rate FiO2 03/27/21 18:05 98.4 62 18 112/51 (71) 03/27/21 06:39 99 Room Air Home Medications No Active Prescriptions or Reported Meds Allergies Coded Allergies: No Known Allergies (Unverified , 04/20/20) A-FIB/CHADSVASC A-FIB History Current/History of A-Fib/PAF?: No ELIAS MENDIETA MD Mar 27, 2021 18:32
[2021-03-27] MEDS ORDERED: IBUPROFEN 800 MG TAB PO PRN (21:45)
[2021-03-28] MEDS: NICOTINE 21MG/24HR 1 EA TRANSDERMAL TD SCH (09:00)
[2021-03-28] MEDS: QUEtiapine FUMARATE 25 MG TAB PO SCH ×3 (11:00→21:00)
[2021-03-28] MEDS: ESCITALOPRAM OXALATE 10 MG TAB (LEXAPRO) PO SCH (14:10)
--- NOTE | 2021-03-28 15:33 | MHIPN ---
[facility] PROGRESS NOTE DATE: 03/28/2021 SUBJECTIVE: Patient was insisting upon her discharge. Reports that she has been noncompliant with her medications and her followup appointments. OBJECTIVE: She is a 25-year-old female who was admitted by Dr. Umanzor. I had seen her for followup and continues to be my patient. She was admitted because of suicide attempt by trying to hang herself with an electric cord. She barricaded herself inside the room, and her door had to be pushed with force, and she was brought to the hospital. A few days ago her significant other committed suicide. Patient is grieving his . She also is guilty about certain things that happened between both of them. She reports that she has to go for his . She was angry because of her inability, as she is an inpatient at [facility]. Currently agrees to take the medications. She has history of bipolar disorder. The compliance is questionable. MENTAL STATUS EXAMINATION: Casually dressed with neat clothes. Depressed. Preoccupied. Speech rate, rhythm, volume are good. Mood is depressed. Affect is appropriate for the mood. Thought process linear, goal directed. Thought content: Patient has guilt feeling. Currently denies any suicidal thoughts; however, patient is a little guarded. Her insight and judgment are poor. DIAGNOSES: 1. Bipolar disorder by history. 2. Bereavement, rule out complicated grief reaction. 3. Rule out major depressive disorder. VITAL SIGNS: Temperature 98.4, pulse is 62, respiratory rate is 18, blood pressure is 112/51. PLAN: Add Seroquel 25 mg twice a day and Lexapro 10 mg in the morning. Titrate the dose. ESTIMATED LENGTH OF STAY: 4-5 days. We will get more collateral from her mother. TIME SPENT: 25 minutes.
[2021-03-28 16:05] VITALS: BP 111/76
[2021-03-29 06:17] VITALS: BP 129/89
[2021-03-29] MEDS: NICOTINE 21MG/24HR 1 EA TRANSDERMAL TD SCH (09:00)
[2021-03-29] MEDS: ESCITALOPRAM OXALATE 10 MG TAB (LEXAPRO) PO SCH (09:25)
[2021-03-29] MEDS: QUEtiapine FUMARATE 25 MG TAB PO SCH ×2 (09:25→21:00)
--- NOTE | 2021-03-29 13:46 | MHIPNPDOC ---
[facility] Progress Note Progress Note DATE OF SERVICE: 03/29/21 SUBJECTIVE: "The medication is making me drowsy,, I do not have any suicidal thoughts, I would like to go to [place] after the discharge" Patient's father lives there. OBJECTIVE: She is a 25-year-old female who was admitted by Dr. Umanzor. I had seen her for followup and continues to be my patient. She was admitted because of suicide attempt by trying to hang herself with an electric cord. She barricaded herself inside the room, and her door had to be pushed with force, and she was brought to the hospital. A few days ago her significant other committed suicide. Patient is grieving his . She also is guilty about certain things that happened between both of them. She reports that she has to go for his . She was angry because of her inability, as she is an inpatient at [facility]. Currently agrees to take the medications. She has history of bipolar disorder. The compliance is questionable. MENTAL STATUS EXAMINATION: Casually dressed with neat clothes. Depressed. Preoccupied. Speech rate, rhythm, volume are good. Mood is depressed. Affect is appropriate for the mood. Thought process linear, goal directed. Thought content: Patient has guilt feeling. Currently denies any suicidal thoughts; however, patient is a little guarded. Her insight and judgment are poor. DIAGNOSES: 1. Bipolar disorder by history. 2. Bereavement, rule out complicated grief reaction. 3. Rule out major depressive disorder. PLAN: Decrease Seroquel 25 mg at night and continue Lexapro 10 mg in the morning. Titrate the dose. ESTIMATED LENGTH OF STAY: 4-5 days. We will get more collateral from her mother. TIME SPENT: 25 minutes. Vital Signs Vital Signs Date Time Temp Pulse Resp B/P (MAP) Pulse Ox O2 Delivery O2 Flow Rate FiO2 03/29/21 06:17 97.3 76 18 129/89 (102) 99 Room Air Current Medications Current Medications Medications (Trade) Dose Ordered Sig/Doni Route PRN Reason Start Time Stop Time Status Last Admin Dose Admin Acetaminophen (Tylenol Tab) 650 mg Q6HP PRN PO HEADACHE or MILD PAIN 03/26/21 13:40 Al Hydrox/Mg Hydrox/Simethicone (Mylanta) 30 ml Q4HP PRN PO HEARTBURN/INDIGESTION 03/26/21 13:40 Escitalopram Oxalate (Lexapro) 10 mg DAILY PO 03/28/21 09:00 03/29/21 09:25 Hydroxyzine HCl (Atarax) 50 mg Q6HP PRN PO MILD ANXIETY/AGITATION 03/26/21 13:40 03/27/21 18:34 Ibuprofen (Advil) 800 mg Q6HP PRN PO MODERATE PAIN (PS 5-7) 03/27/21 21:45 Magnesium Hydroxide (Milk Of Magnesia) 30 ml DAILYPRN PRN PO CONSTIPATION 03/26/21 13:40 Nicotine (Nicoderm Cq 21mg) 1 patch DAILY TD 03/26/21 09:00 Olanzapine (ZyPREXA) 5 mg Q6HP PRN PO SEVERE AGITATION 03/26/21 13:40 Quetiapine Fumarate (SEROquel) 25 mg BID PO 03/28/21 11:00 03/29/21 13:35 DC 03/29/21 09:25 Quetiapine Fumarate (SEROquel) 25 mg QHS PO 03/29/21 21:00 UNV Trazodone HCl (Desyrel) 50 mg QHSP PRN PO INSOMNIA 03/26/21 13:40 Allergies Coded Allergies: No Known Allergies (Unverified , 04/20/20) MIKAELA GOLDBERG MD Mar 29, 2021 13:46
[2021-03-30] MEDS: ESCITALOPRAM OXALATE 10 MG TAB (LEXAPRO) PO SCH (07:59)
[2021-03-30] MEDS: NICOTINE 21MG/24HR 1 EA TRANSDERMAL TD SCH (08:00)
--- NOTE | 2021-03-30 11:56 | MHIPNPDOC ---
[facility] Progress Note Progress Note DATE OF SERVICE: 03/30/21 SUBJECTIVE: "I feel so much better, I would like to go to [place] after the discharge" Objective: admitted by Dr. Umanzor. I had seen her for followup and continues to be my patient. She was admitted because of suicide attempt by trying to hang herself with an electric cord. She barricaded herself inside the room, and her door had to be pushed with force, and she was brought to the hospital. A few days ago her significant other committed suicide. Patient is grieving his . She also is guilty about certain things that happened between both of them. She reports that she has to go for his . She was angry because of her inability, as she is an inpatient at [facility]. Currently agrees to take the medications. She has history of bipolar disorder. The compliance is questionable. Patient reports that she is not drowsy today, she does not have any suicidal thoughts. MENTAL STATUS EXAMINATION: Casually dressed with neat clothes. . Speech rate, rhythm, volume are good. Mood is depressed. Affect is appropriate for the mood. Thought process linear, goal directed. Thought content: Patient has guilt feeling. Currently denies any suicidal thoughts; however, patient is a little guarded. Her insight and judgment are poor. DIAGNOSES: 1. Bipolar disorder by history. 2. Bereavement, rule out complicated grief reaction. 3. Rule out major depressive disorder. PLAN: Continue Seroquel 25 mg at night and continue Lexapro 10 mg in the morning. Titrate the dose. ESTIMATED LENGTH OF STAY: 4-5 days. We will get more collateral from her mother. TIME SPENT: 25 minutes. Vital Signs Vital Signs Date Time Temp Pulse Resp B/P (MAP) Pulse Ox O2 Delivery O2 Flow Rate FiO2 03/29/21 06:17 97.3 76 18 129/89 (102) 99 Room Air Current Medications Current Medications Medications (Trade) Dose Ordered Sig/Doni Route PRN Reason Start Time Stop Time Status Last Admin Dose Admin Acetaminophen (Tylenol Tab) 650 mg Q6HP PRN PO HEADACHE or MILD PAIN 03/26/21 13:40 Al Hydrox/Mg Hydrox/Simethicone (Mylanta) 30 ml Q4HP PRN PO HEARTBURN/INDIGESTION 03/26/21 13:40 Escitalopram Oxalate (Lexapro) 10 mg DAILY PO 03/28/21 09:00 03/30/21 07:59 Hydroxyzine HCl (Atarax) 50 mg Q6HP PRN PO MILD ANXIETY/AGITATION 03/26/21 13:40 03/27/21 18:34 Ibuprofen (Advil) 800 mg Q6HP PRN PO MODERATE PAIN (PS 5-7) 03/27/21 21:45 Magnesium Hydroxide (Milk Of Magnesia) 30 ml DAILYPRN PRN PO CONSTIPATION 03/26/21 13:40 Nicotine (Nicoderm Cq 21mg) 1 patch DAILY TD 03/26/21 09:00 Olanzapine (ZyPREXA) 5 mg Q6HP PRN PO SEVERE AGITATION 03/26/21 13:40 Quetiapine Fumarate (SEROquel) 25 mg BID PO 03/28/21 11:00 03/29/21 13:35 DC 03/29/21 09:25 Quetiapine Fumarate (SEROquel) 25 mg QHS PO 03/29/21 21:00 Trazodone HCl (Desyrel) 50 mg QHSP PRN PO INSOMNIA 03/26/21 13:40 Allergies Coded Allergies: No Known Allergies (Unverified , 04/20/20) MIKAELA GOLDBERG MD Mar 30, 2021 11:56
[2021-03-30 16:42] VITALS: BP 116/74
[2021-03-30] MEDS: QUEtiapine FUMARATE 25 MG TAB PO SCH (21:00)
[2021-03-31] MEDS: ESCITALOPRAM OXALATE 10 MG TAB (LEXAPRO) PO SCH (08:16)
[2021-03-31] MEDS: NICOTINE 21MG/24HR 1 EA TRANSDERMAL TD SCH (08:16)
--- NOTE | 2021-03-31 09:30 | MHIPNPDOC ---
[facility] Progress Note Progress Note DATE OF SERVICE: 03/31/21 SUBJECTIVE: "I feel so much better, I would like to go to [place] after the discharge" Objective: admitted by Dr. Umanzor. I had seen her for followup and continues to be my patient. She was admitted because of suicide attempt by trying to hang herself with an electric cord. She barricaded herself inside the room, and her door had to be pushed with force, and she was brought to the hospital. A few days ago her significant other committed suicide. Patient is grieving his . She also is guilty about certain things that happened between both of them. She reports that she has to go for his . She was angry because of her inability, as she is an inpatient at [facility]. Currently agrees to take the medications. She has history of bipolar disorder. The compliance is questionable. Patient reports that she is not drowsy today, she does not have any suicidal thoughts. MENTAL STATUS EXAMINATION: Casually dressed with neat clothes. . Speech rate, rhythm, volume are good. Mood is depressed. Affect is appropriate for the mood. Thought process linear, goal directed. Thought content: Patient has guilt feeling. Currently denies any suicidal thoughts; however, patient is a little guarded. Her insight and judgment are poor. DIAGNOSES: 1. Bipolar disorder by history. 2. Bereavement, rule out complicated grief reaction. 3. Rule out major depressive disorder. PLAN: Continue Seroquel 25 mg at night and continue Lexapro 10 mg in the morning. Titrate the dose. Patient is currently stable he is handling the situation her well, does not have any suicidal thoughts Planning to go to [place] to meet her father and sister. Needs some collateral information before the discharge. ESTIMATED LENGTH OF STAY: 4-5 days. We will get more collateral from her mother. TIME SPENT: 25 minutes. Vital Signs Vital Signs Date Time Temp Pulse Resp B/P (MAP) Pulse Ox O2 Delivery O2 Flow Rate FiO2 03/30/21 16:42 98.0 58 16 116/74 (88) 100 Room Air Current Medications Current Medications Medications (Trade) Dose Ordered Sig/Doni Route PRN Reason Start Time Stop Time Status Last Admin Dose Admin Acetaminophen (Tylenol Tab) 650 mg Q6HP PRN PO HEADACHE or MILD PAIN 03/26/21 13:40 Al Hydrox/Mg Hydrox/Simethicone (Mylanta) 30 ml Q4HP PRN PO HEARTBURN/INDIGESTION 03/26/21 13:40 Escitalopram Oxalate (Lexapro) 10 mg DAILY PO 03/28/21 09:00 03/31/21 08:16 Hydroxyzine HCl (Atarax) 50 mg Q6HP PRN PO MILD ANXIETY/AGITATION 03/26/21 13:40 03/27/21 18:34 Ibuprofen (Advil) 800 mg Q6HP PRN PO MODERATE PAIN (PS 5-7) 03/27/21 21:45 Magnesium Hydroxide (Milk Of Magnesia) 30 ml DAILYPRN PRN PO CONSTIPATION 03/26/21 13:40 Nicotine (Nicoderm Cq 21mg) 1 patch DAILY TD 03/26/21 09:00 Olanzapine (ZyPREXA) 5 mg Q6HP PRN PO SEVERE AGITATION 03/26/21 13:40 Quetiapine Fumarate (SEROquel) 25 mg BID PO 03/28/21 11:00 03/29/21 13:35 DC 03/29/21 09:25 Quetiapine Fumarate (SEROquel) 25 mg QHS PO 03/29/21 21:00 Trazodone HCl (Desyrel) 50 mg QHSP PRN PO INSOMNIA 03/26/21 13:40 Allergies Coded Allergies: No Known Allergies (Unverified , 04/20/20) MIKAELA GOLDBERG MD Mar 31, 2021 09:30
--- NOTE | 2021-03-31 09:38 | MHHPEPDOC ---
General Date Of Admission: Mar 27, 2021 Legal Status: 9.39 Chief Complaint Suicide attempt ". History of Present Illness HISTORY OF THE PRESENT ILLNESS: Per mental health evaluation: "Pt reportedly lost her S.O. several days ago to suicide(hanging). Earlier redight a friend went to check on pt. and found her door barricaded, had to kick the door in to enter the residence. Pt reportedly had a wire hanging from ceiling and according to friend pt had it wrapped around her neck. Pt disputed this stating it was not wrapped around her neck and stated she just wanted to experience what her S.O. had done so she could better understand his suicide." RELEVANT HISTORY: Patient is a 25-year-old woman who reports she has a history of bipolar (diagnosed on inpatient admission when she was 14 years old due to cutting) who presents with police to the ED after per her report patient had a wire hanging from the ceiling with it wrapped around her neck. Reports she used cocaine 4 days ago which may have been mixed with other things, and she has been using with her partner who . Toxicology report was positive for cocaine, amphetamines, cannabis, reports she smokes cannabis daily. Patient reports she did not have it around her neck and had her 's clothes hanging on it. States " I wanted to understand what it is like", " I feel guilty because it was partly me". When asked to elaborate states that there were some infidelities prior to his suicide March 24. States that her had schizophrenia and had been dealing with hearing voices. Also reports another friend recently attempting suicide. On interview denies any psychiatric symptoms, denies any recent cutting, denies suicidal ideation, intent or plan. States she feels around the same time she would came in around a year ago due to suicidal ideation. Reports she has plans to take a week off from work and pain to her apartment, states she bought some paint. Also reports having 2 small animals she cares for, but denies other supports, also denies having any outpatient provider or medications. Denies having any weapons or guns at home. Reports that her friend from work who she does not know too well "Pb" was the one who broke in the door and was concerned for her, but states she feels frustrated because no one came to her until approximately 48 hours after the passing of her partner. When asked for collateral, she was initially resistant not wanting us to reach out to anybody for it due to concerns that they may paint a picture of her being unsafe. She was made aware that we need to obtain collateral to corroborate that she was not actually having a suicide attempt. PAST PSYCHIATRIC HISTORY: Denies taking any medications, reports 1 inpatient admission at age 14 after suicide attempt by superficial cutting, reports history of bipolar, but denies any symptoms of bipolar including periods of no sleep for 4 days or more, elevated moods, pressured speech. PAST MEDICAL HISTORY: Denies FAMILY HISTORY: Reports having some bipolar in her family PERSONAL AND SOCIAL HISTORY: The patient was born and raised in [place], [place]. Reports being raised by her mother, father was out of the picture. Resides in: [place] in the apartment above the [employer] where she works. Marital Status: S Single Children: None reported Employment: [employer], works in the kitchen. SUBSTANCE ABUSE HISTORY: Cannabis, cocaine, also "dabbing of cannabis" LEGAL HISTORY: . MENTAL STATUS EXAMINATION: Patient is a 25-year old female, who is withdrawn, guarded, poor eye contact, appears stated age with blonde hair, in hospital clothing, sitting in a chair, fair hygiene, has burn cruz on her forearms from a pizza oven reportedly. Speech is mildly slowed, normal volume, spontaneous. Language skills are intact. Thought processes including: Linear, logical. Thought content: Denies suicidal ideation, intent, plan. Abstract reasoning, and computation: Intact Description of associations: Normal. Description of abnormal or psychotic thoughts: Denies. Judgment: Poor. Insight: Fair. Orientation to x4. Recent and remote memory: Intact. Attention span and concentration: Good. Language: Burmese. Fund of knowledge: Average. Mood: "okay". Affect: Dysthymic, labile, tearful, appropriate, mood incongruent DIAGNOSIS: 1. Unspecified depressive disorder, uncomplicated bereavement, rule out borderline personality disorder. Cannabis use disorder, cocaine use disorder, PLAN: 1. Patient likely minimizing psychiatric symptoms, also resistance to us reach out to collateral. Collateral needs to be obtained in order to verify she did not have a suicide attempt by hanging, if she did not have a suicide attempt confirmed by "Pb" who came to her apartment, she can be discharged with an outpatient appointment within 7 days in order to process feelings of grief and guilt, be evaluated for necessity for medication, and safety plan in place. If it is confirmed she did have a suicide attempt she meets criteria for inpatient admission involuntarily, this was communicated to the PSA. If collateral cannot be obtained, per admission work-up she meets criteria for inpatient treatment due to suicide attempt by hanging. Total time 35 minutes Past Psychiatric History Previous Psychiatric Diagnosis: . Previous Psychiatric Admissions: . Suicide Attempts: . Psychiatric Follow-up: . Psychiatric medications: . Social History Childhood: . Abuse/Trauma:. Current Living Situation: . Education: . Employment: . Social Support: . Legal: . Marital: . Mental Status Examination Build: average, other Demeanor: average, other Activity: other Behavior: other Mood: other Thought Process: other Thought Content (Delusions): other Thought Content (Other): other Thought Content (Aggressive): other Perception (Hallucinations): other Cognition (Impairment of): other Cognition(Intelligence Est.): other Insight: other Judgment: Other Psychosis: Other A-FIB/CHADSVASC A-FIB History Current/History of A-Fib/PAF?: No Current PO Anticoag Therapy: No Assessment Already dictated Initial Treatment Plan 1. Patient was admitted on a [9.39] status. 2. Complete history was obtained. 3. With patients permission, family will be contacted and database will be expanded. 4. Patients medication regimen will be reviewed and changed accordingly. 5. Patient will be provided with protected environment. 6. Patient will be treated with individual, group, and milieu therapies. 7. Patient will receive supportive psych-education. 8. Discharge planning will commence immediately. 9. Outpatient follow-up treatment will be strongly recommended. 10. The initial treatment plan will focus initially on: * Depression. * Risk for suicide. ESTIMATED LENGTH OF STAY: - DAYS. TIME SPENT COUNSELING AND COORDINATING INITIAL CARE: minutes. N/A-No Antipsychotics Vital Signs Vital Signs Date Time Temp Pulse Resp B/P (MAP) Pulse Ox O2 Delivery O2 Flow Rate FiO2 03/30/21 16:42 98.0 58 16 116/74 (88) 100 Room Air Medications No Active Prescriptions or Reported Meds Allergies Coded Allergies: No Known Allergies (Unverified , 04/20/20) MIKAELA GOLDBERG MD Mar 31, 2021 09:37
[2021-03-31] MEDS: QUEtiapine FUMARATE 25 MG TAB PO SCH (21:00)
[2021-04-01] MEDS: NICOTINE 21MG/24HR 1 EA TRANSDERMAL TD SCH (08:42)
[2021-04-01] MEDS: ESCITALOPRAM OXALATE 10 MG TAB (LEXAPRO) PO SCH (08:42)
[2021-04-01] MEDS ORDERED: LEXA1TAB PO (12:56)
[2021-04-01] MEDS ORDERED: TRAZ-252 PO (12:56)
--- NOTE | 2021-04-01 13:15 | MHDSPDOC ---
[facility] Discharge Summary Discharge Summary DATE OF ADMISSION: Mar 26, 2021 at 13:36 DATE OF DISCHARGE: Mar DISCHARGE DIAGNOSES: 1. Depression 2. Stress of friend REASON FOR ADMISSION: HISTORY OF THE PRESENT ILLNESS: Per mental health evaluation: "Pt reportedly lost her S.O. several days ago to suicide(hanging). Earlier carly a friend went to check on pt. and found her door barricaded, had to kick the door in to enter the residence. Pt reportedly had a wire hanging from ceiling and according to friend pt had it wrapped around her neck. Pt disputed this stating it was not wrapped around her neck and stated she just wanted to experience what her S.O. had done so she could better understand his suicide." RELEVANT HISTORY: Patient is a 25-year-old woman who reports she has a history of bipolar (diagnosed on inpatient admission when she was 14 years old due to cutting) who presents with police to the ED after per her report patient had a wire hanging from the ceiling with it wrapped around her neck. Reports she used cocaine 4 days ago which may have been mixed with other things, and she has been using with her partner who . Toxicology report was positive for cocaine, amphetamines, cannabis, reports she smokes cannabis daily. Patient reports she did not have it around her neck and had her 's c lothes hanging on it. States " I wanted to understand what it is like", " I feel guilty because it was partly me". When asked to elaborate states that there were some infidelities prior to his suicide March 24. States that her had schizophrenia and had been dealing with hearing voices. Also reports another friend recently attempting suicide. On interview denies any ps ychiatric symptoms, denies any recent cutting, denies suicidal ideation, intent or plan. States she feels around the same time she would came in around a year ago due to suicidal ideation. Reports she has plans to take a week off from work and pain to her apartment, states she bought some paint. Also reports having 2 small animals she cares for, but denies other supports, also denies having any outpatient provider or medications. Denies having any weapons or guns at home. Reports that her friend from work who she does not know too well "Pb" was the one who broke in the door and was concerned for her, but states she feels frustrated because no one came to her until approximately 48 hours after the passing of her partner. When asked for collateral, she was initially resistant not wanting us to reach out to anybody for it due to concerns that they may paint a picture of her being unsafe. She was made aware that we need to obtain collateral to corroborate that she was not actually having a suicide attempt. PAST PSYCHIATRIC HISTORY: Denies taking any medications, reports 1 inpatient admission at age 14 after suicide attempt by superficial cutting, reports history of bipolar, but denies any symptoms of bipolar including periods of no sleep for 4 days or more, elevated moods, pressured speech. PAST MEDICAL HISTORY: Denies FAMILY HISTORY: Reports having some bipolar in her family PERSONAL AND SOCIAL HISTORY: The patient was born and raised in [place], [place]. Reports being raised by her mother, father was out of the picture. Resides in: [place] in the apartment above the [employer] where she works. Marital Status: S Single Children: None reported Employment: [employer], works in the kitchen. SUBSTANCE ABUSE HISTORY: Cannabis, cocaine, also "dabbling of cannabis" CONSULTANTS INVOLVED: TREATMENT AND PROGRESS ON THE UNIT : It was reported to me that patient spent most of her time in her room and did not participate in groups I met with the patient today and she discussed in detail what brought her to the hospital. Apparently patient was working in a [employer] and engaged in the relationship with a man who she knew who both had schizophrenia and polysubstance dependence and abuse. She had an affair with another man and this friend of hers became angry and despondent and stated that his auditory hallucinations were returning. He returned to his home and again was using and eventually she was notified that he committed suicide. Patient was grieving in her apartment when a friend broke in and found her sitting under a noose. Patient stated in the past records that that she had had a history of bipolar disorder but did not describe manic symptoms. She had previously been treated for depression and during this stay was placed also on Lexapro 10 mg. Patient's stepfather and mother are planning to take her to [place] to see her sister. 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 Speech is no abnormality. Language skills are intact. Thought processes including: No disturbances. Thought content: Grieving over friend who committed suicide. Abstract reasoning, and computation: Intact. Description of associations: No loose associations. Description of abnormal or psychotic thoughts: No psychotic thought. Judgment: Poor. Insight: Moderate. Orientation to x3. Recent and remote memory: Intact. Attention span and concentration: Intact. Language: No disturbance. Fund of knowledge: Full. Mood: Good. Affect: Bright. MEDICATIONS ON DISCHARGE: -Lexapro 10 mg for depression. -Trazodone 50 for's insomnia. PLAN/FOLLOWUP ARRANGEMENTS: . The amount of time spent in the coordination of care for this patient was approximately 45 minutes ETOH/Disorder Med Rx ETOH/DRUG DISORDER RX: Given to pt at d/c Vital Signs/I&Os Vital Signs Date Time Temp Pulse Resp B/P (MAP) Pulse Ox O2 Delivery O2 Flow Rate FiO2 03/30/21 16:42 98.0 58 16 116/74 (88) 100 Room Air Medications Scheduled Escitalopram Oxalate (Lexapro) 10 Mg Tablet, 10 MG PO DAILY for Depreesion, #14 Scheduled PRN Trazodone HCl (Trazodone HCl) 50 Mg Tablet, 50 MG PO QHSP PRN for INSOMNIA, #14 Allergies Coded Allergies: No Known Allergies (Unverified , 04/20/20) DAMON PEREIRA MD Apr 01, 2021 13:15
== END 2021-04-01 14:39 | disposition home or self-care (01) | DRG 754 ==
LOC: M ED 00:58 → M ED INP 13:36 → M PSY 17:07
PROVIDERS: ADMIT Student in an Organized Health Care Education/Training Program; ATTEND Psychiatry & Neurology Child & Adolescent Psychiatry
DX: F32.9 Major depressive disorder, single episode, unspecified (principal); F14.10 Cocaine abuse, uncomplicated; F12.10 Cannabis abuse, uncomplicated; F43.21 Adjustment disorder with depressed mood; F60.3 Borderline personality disorder; Z91.5 Personal history of self-harm

== ENCOUNTER 2022-09-26 10:35 | Emergency (ER) | payer MEDICAID, OTHER ==
[~2022-09-26] VITALS: Ht 167.6 cm; Wt 59.1 kg
[~2022-09-26 10:35] MED LIST: LEXA1TAB PO; TRAZ-252 PO
[2022-09-26 10:36] VITALS: BP 117/78
[2022-09-26 13:02] LABS: AMORPHOUS SEDIMENT SMALL (NEGATIVE); APPEARANCE, URINE HAZY (CLEAR); BACTERIA, URINE AUTO 1+ (NEGATIVE); BILIRUBIN, URINE AUTO NEGATIVE (NEGATIVE); BLOOD, URINE BLOOD 3+ (NEGATIVE); COLOR, URINE YELLOW (YELLOW); GLUCOSE, URINE (UA) AUTO NEGATIVE (NEGATIVE); KETONE, URINE AUTO NEGATIVE (NEGATIVE); LEUKOCYTE ESTERASE, URINE AUTO NEGATIVE (NEGATIVE); MUCUS, URINE SMALL (NEGATIVE); NITRITE, URINE AUTO NEGATIVE (NEGATIVE); PROTEIN, URINE AUTO NEGATIVE (NEGATIVE); RBC, URINE AUTO 1 /HPF (0-3); SPECIFIC GRAVITY URINE AUTO 1.015 (1.002-1.035); SQUAMOUS EPITHELIAL CELL UR AU 7 /HPF (0-6); UROBILINOGEN, URINE AUTO 0.2 mg/dL (0.0-2.0); WBC, URINE AUTO 6 /HPF (0-3)
== END 2022-09-26 12:48 | disposition left against medical advice (07) ==
LOC: M ED 10:35
DX: R10.2 Pelvic and perineal pain (principal); Z53.9 Procedure and treatment not carried out, unspecified reason

== ENCOUNTER 2023-02-24 16:49 | Emergency (ER) | payer OTHER ==
[~2023-02-24] VITALS: Ht 170.2 cm; Wt 59.6 kg
[~2023-02-24 16:49] MED LIST changes: +LEXA1TAB2
[2023-02-24 16:50] VITALS: BP 129/78; TEMP 97.8; O2SAT 100
== END 2023-02-24 16:50 | disposition left against medical advice (07) ==
LOC: M ED 16:49
DX: Z53.21 Procedure and treatment not carried out due to patient leaving prior to being seen by health care provider (principal)

== ENCOUNTER 2024-02-02 21:29 | Observation (INO) | payer OTHER ==
[~2024-02-02] VITALS: Ht 165.1 cm; Wt 70.9 kg
[2024-02-02 22:52] LABS: BASO # 0.1 10^3/uL (0.0-0.2); BASO % 0.5 % (0.0-1.0); EOS # 0.2 10^3/uL (0.0-0.5); EOS % 1.2 % (0.0-3.0); HEMATOCRIT 39.2 % (36.0-47.0); HEMOGLOBIN 13.2 g/dl (12.0-15.5); LYMPH # 1.4 10^3/uL (1.5-5.0); LYMPH % 11.5 % (24.0-44.0); MEAN CORPUSCULAR HEMOGLOBIN 31.1 pg (27.0-33.0); MEAN CORPUSCULAR HGB CONC 33.7 g/dl (32.0-36.5); MEAN CORPUSCULAR VOLUME 92.2 fl (80.0-96.0); MONO # 1.1 10^3/uL (0.0-0.8); MONO % 8.6 % (2.0-8.0); NEUTROPHILS # 9.7 10^3/uL (1.5-8.5); NEUTROPHILS % 77.9 % (36.0-66.0); PLATELET COUNT, AUTOMATED 340 10^3/uL (150-450); RED BLOOD COUNT 4.25 10^6/uL (4.00-5.40); WHITE BLOOD COUNT 12.4 10^3/uL (4.0-10.0)
[2024-02-02] MEDS: DEXTROSE 50% 50ML SYRINGE IV STA (23:08)
[2024-02-02] MEDS: D5W/0.45% SODIUM CHLORIDE 1,000 ML IV SCH (23:08)
[2024-02-02 23:19] LABS: ALBUMIN 3.7 G/DL (3.2-5.2); ALKALINE PHOSPHATASE 114 U/L (46-116); ALT/SGPT 11 U/L (7.0-40); AST/SGOT < 8 U/L (<34); BILIRUBIN,TOTAL 0.4 MG/DL (0.3-1.2); BLOOD UREA NITROGEN 12 MG/DL (9-23); CALCIUM LEVEL 9.7 MG/DL (8.5-10.1); CARBON DIOXIDE LEVEL 27 MMOL/L (20-31); CHLORIDE LEVEL 110 MMOL/L (98-107); CREATININE FOR GFR 0.77 MG/DL (0.55-1.30); GLOMERULAR FILTRATION RATE > 60.0 (>60); GLUCOSE, FASTING 46 MG/DL (60-100); POTASSIUM SERUM 4.2 MMOL/L (3.5-5.1); SODIUM LEVEL 142 MMOL/L (136-145); TOTAL PROTEIN 7.1 G/DL (5.7-8.2)
[2024-02-03 00:21] LABS: HEMOGLOBIN A1c 5.1 % (4.0-6.0)
[2024-02-03 00:25] LABS: VENOUS BASE EXCESS -2.7 (-2.0-2.0); VENOUS HCO3 23.1 MMOL/L (23.0-27.0); VENOUS O2 SATURATION 78.6 % (60.0-80.0); VENOUS PARTIAL PRESSURE CO2 43.8 mmHg (38.0-50.0); VENOUS PARTIAL PRESSURE O2 44.4 mmHg (30.0-50.0); VENOUS STANDARD HCO3 21.8 MMOL/L; VENOUS TOTAL CO2 24.4 MMOL/L (24.0-28.0)
[2024-02-03 00:39] LABS: BASO # 0.1 10^3/uL (0.0-0.2); BASO % 0.5 % (0.0-1.0); EOS # 0.1 10^3/uL (0.0-0.5); EOS % 1.3 % (0.0-3.0); HEMATOCRIT 36.5 % (36.0-47.0); HEMOGLOBIN 12.2 g/dl (12.0-15.5); LYMPH # 1.3 10^3/uL (1.5-5.0); LYMPH % 11.5 % (24.0-44.0); MEAN CORPUSCULAR HEMOGLOBIN 30.8 pg (27.0-33.0); MEAN CORPUSCULAR HGB CONC 33.4 g/dl (32.0-36.5); MEAN CORPUSCULAR VOLUME 92.2 fl (80.0-96.0); MONO # 0.9 10^3/uL (0.0-0.8); MONO % 8.1 % (2.0-8.0); NEUTROPHILS # 8.7 10^3/uL (1.5-8.5); NEUTROPHILS % 78.2 % (36.0-66.0); PLATELET COUNT, AUTOMATED 339 10^3/uL (150-450); RED BLOOD COUNT 3.96 10^6/uL (4.00-5.40); WHITE BLOOD COUNT 11.2 10^3/uL (4.0-10.0)
[2024-02-03 00:45] LABS: ETHYL ALCOHOL (ETHANOL) 0.007 % (0.000-0.010)
[2024-02-03 00:54] LABS: SALICYLATE LEVEL < 3.0 MG/DL (<30); THYROID STIMULATING HORMONE 0.599 uIU/ML (0.55-4.78)
[2024-02-03] MEDS: DEXTROSE 50% 50ML SYRINGE IV STA (03:37)
[2024-02-03 03:50] LABS: BARBITURATES URINE NEGATIVE (NEGATIVE); BENZODIAZEPINES URINE NEGATIVE (NEGATIVE); METHADONE URINE NEGATIVE (NEGATIVE); OPIATES URINE NEGATIVE (NEGATIVE)
[2024-02-03 03:51] LABS: PHENCYCLIDINE URINE NEGATIVE (NEGATIVE)
[2024-02-03 04:09] LABS: AMPHETAMINES LEVEL URINE POSITIVE (NEGATIVE); CANNABINOIDS URINE POSITIVE (NEGATIVE); COCAINE METABOLITE URINE POSITIVE (NEGATIVE)
[2024-02-03] MEDS: D10W/0.45% SODIUM CHLORIDE 1,000 ML IV SCH ×2 (04:21→05:44)
[2024-02-03] MEDS ORDERED: ACETAMINOPHEN TAB 650MG DOSE (2X325MG) PO PRN (05:05)
[2024-02-03] MEDS ORDERED: MOM 30ML SUSPENSION UDC PO PRN (05:05)
[2024-02-03] MEDS ORDERED: HOME MED LIST COMPLETE! XX SCH (05:10)
[2024-02-03] MEDS ORDERED: GLUCAGON INJ 1MG VIAL SC PRN (05:25)
[2024-02-03] MEDS ORDERED: GLUCOSE 4 GM CHEW PO PRN (05:25)
[2024-02-03] MEDS ORDERED: DEXTROSE 50% 50ML SYRINGE IV PRN (05:25)
[2024-02-03 09:00] VITALS: BP 108/69; TEMP 98.2; O2SAT 99
[2024-02-03] MEDS: CEPHALEXIN 500 MG CAP PO SCH (09:50)
[2024-02-03] MEDS: ENOXAPARIN 40MG/0.4ML SYRINGE (J1650 PER 10MG) SC SCH (09:52)
[2024-02-03] MEDS ORDERED: ISOVUE-370 76% 100ML VIAL As Ordered ONE (12:04)
[2024-02-03 12:12] VITALS: BP 109/66; TEMP 98.9; O2SAT 100
[2024-02-03 15:39] VITALS: BP 119/68; TEMP 98.9; O2SAT 100
== END 2024-02-03 18:42 | disposition left against medical advice (07) ==
LOC: M ED 21:29 → M ED INP 02-03 05:05 → INTOOBSV 02-03 05:05 → M PCU 02-03 08:47
PROVIDERS: ADMIT Internal Medicine; ATTEND Internal Medicine
DX: E16.2 Hypoglycemia, unspecified (principal); R55 Syncope and collapse; R00.1 Bradycardia, unspecified; F19.10 Other psychoactive substance abuse, uncomplicated; L73.9 Follicular disorder, unspecified; R10.9 Unspecified abdominal pain; R42 Dizziness and giddiness; F32.A Depression, unspecified; F17.210 Nicotine dependence, cigarettes, uncomplicated; Z80.1 Family history of malignant neoplasm of trachea, bronchus and lung
CPT/HCPCS: 70450; 71045; 74176; 80053; 80143; 80307; 82077; 82140; 82803; 83036; 83605; 84206; 84443; 85025; 93005; 93041; 94760; 96361; 96372; 96374; 99285; J1650

== ENCOUNTER → 2025-02-06 | Outpatient (REF) | payer OTHER | LOC: M PLALAB 14:37 | PROVIDERS: ATTEND Obstetrics & Gynecology | DX: Z34.92 Encounter for supervision of normal pregnancy, unspecified, second trimester (principal) ==

== ENCOUNTER → 2025-02-14 | Outpatient (CLI) | payer OTHER ==
[2025-02-14 18:52] LABS: PLATELET COUNT, AUTOMATED 292 10^3/uL (150-450)
[2025-02-14 19:21] LABS: HIV 1&2 SCREEN NEGATIVE (NEGATIVE)
[2025-02-14 19:29] LABS: HEPATITIS C VIRUS ABY INDEX 0.03 INDEX (<0.8)
== END ==
LOC: M PLALAB 15:00
PROVIDERS: ATTEND Obstetrics & Gynecology
DX: Z34.92 Encounter for supervision of normal pregnancy, unspecified, second trimester (principal)

== ENCOUNTER → 2025-03-08 | Outpatient (REF) | payer OTHER ==
[2025-03-08 16:57] LABS: Trichomonas vaginalis (AMP) POSITIVE (NEGATIVE)
[2025-03-08 17:21] LABS: GC DNA AMPLIFICATION NEGATIVE (NEGATIVE)
== END ==
LOC: M SFHCWAGY 15:02
PROVIDERS: ATTEND Obstetrics & Gynecology
DX: Z34.92 Encounter for supervision of normal pregnancy, unspecified, second trimester (principal)

== ENCOUNTER → 2025-03-28 | Outpatient (CLI) | payer OTHER | LOC: M WHC 09:07 | PROVIDERS: ATTEND Obstetrics & Gynecology | DX: Z36.89 Encounter for other specified antenatal screening (principal); Z3A.19 19 weeks gestation of pregnancy ==

== ENCOUNTER → 2025-04-06 | Outpatient (REF) | payer OTHER | LOC: M SFHCWAGY 14:54 | PROVIDERS: ATTEND Student in an Organized Health Care Education/Training Program | DX: R82.90 Unspecified abnormal findings in urine (principal) ==

== ENCOUNTER 2025-05-24 05:29 | Emergency (ER) | payer OTHER ==
[~2025-05-24] VITALS: Ht 170.2 cm; Wt 84.1 kg
[2025-05-24 05:30] VITALS: TEMP 98.2
[2025-05-24] MEDS: ONDANSETRON 4MG/2ML VIAL IV ONE (06:42)
[2025-05-24] MEDS: NS (Normal Saline) 0.9% 1,000 ML IV ONE (06:42)
[2025-05-24 06:59] LABS: APPEARANCE, URINE HAZY (CLEAR); BACTERIA, URINE AUTO NEGATIVE (NEGATIVE); BILIRUBIN, URINE AUTO NEGATIVE (NEGATIVE); BLOOD, URINE BLOOD NEGATIVE (NEGATIVE); GLUCOSE, URINE (UA) AUTO NEGATIVE (NEGATIVE); KETONE, URINE AUTO 2+ mg/dL (NEGATIVE); LEUKOCYTE ESTERASE, URINE AUTO NEGATIVE (NEGATIVE); MUCUS, URINE SMALL (NEGATIVE); NITRITE, URINE AUTO NEGATIVE (NEGATIVE); PROTEIN, URINE AUTO 1+ mg/dL (NEGATIVE); RBC, URINE AUTO 2 /HPF (0-3); SPECIFIC GRAVITY URINE AUTO 1.024 (1.002-1.035); SQUAMOUS EPITHELIAL CELL UR AU 5 /HPF (0-6); UROBILINOGEN, URINE AUTO 0.2 mg/dL (0.0-2.0); WBC, URINE AUTO 0 /HPF (0-3)
[2025-05-24 07:02] LABS: BASO # 0.0 10^3/uL (0.0-0.2); BASO % 0.3 % (0.0-1.0); EOS # 0.2 10^3/uL (0.0-0.5); EOS % 1.8 % (0.0-3.0); LYMPH # 1.9 10^3/uL (1.5-5.0); LYMPH % 14.5 % (24.0-44.0); MONO # 0.8 10^3/uL (0.0-0.8); MONO % 6.1 % (2.0-8.0); NEUTROPHILS # 9.9 10^3/uL (1.5-8.5); NEUTROPHILS % 76.5 % (36.0-66.0); PLATELET COUNT, AUTOMATED 279 10^3/uL (150-450)
[2025-05-24 07:30] LABS: CALCIUM LEVEL 9.4 MG/DL (8.5-10.1); CARBON DIOXIDE LEVEL 21 MMOL/L (20-31); CHLORIDE LEVEL 102 MMOL/L (98-107); CREATININE FOR GFR 0.53 MG/DL (0.55-1.30); GLOMERULAR FILTRATION RATE > 90.0 (>60); POTASSIUM SERUM 3.8 MMOL/L (3.5-5.1); SODIUM LEVEL 136 MMOL/L (136-145)
[2025-05-24 09:00] VITALS: BP 131/66; O2SAT 98
== END 2025-05-24 09:10 | disposition home or self-care (01) ==
LOC: M ED 05:29
DX: O21.0 Mild hyperemesis gravidarum (principal); Z3A.00 Weeks of gestation of pregnancy not specified
CPT/HCPCS: 80048; 81001; 85025; 87086; 87486; 87581; 87633; 87798; 96361; 96374; 99284; J2405

== ENCOUNTER → 2025-07-03 | Outpatient (CLI) | payer OTHER | LOC: M WHC 11:33 | PROVIDERS: ATTEND Student in an Organized Health Care Education/Training Program | DX: Z34.92 Encounter for supervision of normal pregnancy, unspecified, second trimester (principal) ==

== ENCOUNTER → 2025-07-10 | Outpatient (CLI) | payer OTHER ==
[2025-07-10 19:13] LABS: PLATELET COUNT, AUTOMATED 258 10^3/uL (150-450)
[2025-07-10 19:15] LABS: GLUCOSE CHALLENGE TEST 1 HOUR 92 MG/DL (LESS THAN 140)
[2025-07-10 19:42] LABS: HIV 1&2 SCREEN NEGATIVE (NEGATIVE)
[2025-07-10 19:50] LABS: HEPATITIS C VIRUS ABY INDEX 0.02 INDEX (<0.8)
== END ==
LOC: M PLALAB 14:16
PROVIDERS: ATTEND Student in an Organized Health Care Education/Training Program
DX: Z34.80 Encounter for supervision of other normal pregnancy, unspecified trimester (principal)

== ENCOUNTER → 2025-07-24 | Outpatient (CLI) | payer OTHER | LOC: M WHC 11:27 | PROVIDERS: ATTEND Advanced Practice Midwife | DX: Z36.89 Encounter for other specified antenatal screening (principal); Z3A.36 36 weeks gestation of pregnancy ==